=== PATIENT | female | born 1930 | race Caucasian/White ===

== ENCOUNTER → 2017-04-14 | Outpatient (CLI) | payer OTHER ==
--- NOTE | 2017-04-14 18:55 | RAD ---
HISTORY: Cough and shortness of breath Study: PA and lateral chest Comparison: None Findings: The trachea is midline. The cardiac silhouette is normal with intact pacemaker wire leads via the le ft subclavian vein.. The lungs are clear without focal infiltrate or effusion. The bony thorax is u nremarkable. IMPRESSION: 1. No acute cardiopulmonary disease. Reported By:
== END ==
LOC: RAD 17:08
PROVIDERS: ATTEND Internal Medicine
DX: R06.09 Other forms of dyspnea (principal)
CPT/HCPCS: 71020

== ENCOUNTER 2017-08-14 12:09 | Emergency (ER) | payer OTHER ==
[2017-08-14 12:31] VITALS: BMI 21.1
--- NOTE | 2017-08-14 13:13 | DR.GENAD ---
HPI - PCP Primary Care Physician: felix gaines - Complaint/Symptoms Chief Complaint Doctors Comments: Patient states she fell while going to the bathroom with head, neck and lower back pain. Patient states she is unsure if she passed out. States she is taking a new blood thinner and they told her it may make her dizzy. She dfenis chest pain or SOB. She denies nausea, vomiting , but has had a cold and cough. She denies dysuria, hematuria, or numbness in legs or back. Family states patient is taking antibiotics for strept infection in which she tested positive recently and is on Amoxicillin 500mg. Patient states her throat is not hurting. Chief Complaint:: pt fell going to the bathroom about an hour and a half ago she is having lower back pain and neck pain at this time - Nurses notes reviewed Nurses Notes Review: Yes - Source History Provided: Patient - Mode of Arrival Mode of Arrival: EMS - Timing Onset of Chief Complaint: 08/14/17 Came on: Suddenly - Duration Duration: Constant How lon Duration: Hours - Location Location: head, neck and lower back - Severity Severity: Moderate - Modifying Factors Worsens:: movement Improves:: nothing PMH - PMH Past Medical History: Yes Past Medical History: Anxiety, Arthritis, COPD, Hypertension Past Surgical History: Yes Surgical History: Ortho Surgery Past Surgical History Comment: pace maker, knee replacement - Family History History of Family Medical Conditions: Yes Family Medical History: Diabetes Mellitus, Cancer, Coronary Artery Disease, Heart Failure, Hypertension - Social History Does patient currently use any type of tobacco product: No Have you used tobacco products in the last 12 months: No Type of Tobacco Use: None Does any household member use tobacco: No Alcohol Use: None Do you use any recreational Drugs:: No Lives With: Alone Lives Where: Home - infectious screening In the last 2 months have you had wt loss of >10#?: NO Have you had fever, night sweats or hemotysis?: No Have you traveled outside the country in the last 6 months?: No Isolation: Standard ROS - Review of Systems Constitutional: No Symptoms Reported Eyes: No Symptoms Reported. negative: See HPI, Eye Pain, Blurred Vision, Tearing, Discharge, Photophobia, Diplopia, Other ENTM: No Symptoms Reported Respiratoy: No Symptoms Reported, Non-Productive Cough Cardiovascular: No Symptoms Reported Gastrointestinal/Abdominal: No Symptoms Reported Genitourinary: No Symptoms Reported Neurological: No Symptoms Reported, Headache Musculoskeletal: No Symptoms Reported, Back Pain, Neck Pain Integumentary: No Symptoms Reported. negative: See HPI, Change in Color, Change in Hair/Nails, Dryness, Lesions, Lumps, Rash, Itching, Wound, Bruises, Juandice, Other Hematologic/Lymphatic: No Symptoms Reported Endocrine: No Symptoms Reported Psychiatric: No Symptoms Reported PE - Vital Signs Vitals: Temperature 97.8 F Pulse Rate [Left Radial] 70 Pulse Rate 69 Respiratory Rate 17 Blood Pressure [Left Arm] 158/95 Blood Pressure 147/75 O2 Sat by Pulse Oximetry 97 - General Limitations: No Limitations General Appearance: Alert, In Distress (moderate) - Head Head Exam: Normal Inspection, Atraumatic, Normocephalic - Eyes Eye exam: Normal Appearance, PERRL, EOMI. negative: Scleral Icterus, Conjunctival Injection, Nystagmus, Miosis, Mydrasis, Periorbital Swelling, Periorbital Tenderness, Other - ENT ENT Exam: Normal Exam, Normal Oropharynx, Normal External Ear Exam, Mucous Membranes Moist, TM's Normal Bilaterally External Ear Exam: Normal External Inspection TM/Canal Exam: Bilateral Normal Nose Exam: Normal Nose Exam Mouth Exam: Normal Inspection Throat Exam: Normal Inspection - Neck Neck Exam: Normal Inspection, Full ROM, Trachea Midline - Chest Chest Inspection: Normal Inspection, Symmetric Chest Wall Rise - Respiratory Respiratory Exam: Normal Lung Sounds Bilat Respiratory Exam: Bilateral Clear to Auscultation - Cardiovascular Cardiovascular Exam: Regular Rate, Normal Rhythm, Normal Heart Sounds, Systolic Murmur - Abdominal Exam Abdominal Exam: Normal Inspection, Normal Bowel Sounds, Soft Abdominal Tenderness: negative: RUQ, RLQ, LUQ, LLQ, Epigastrium, Suprapubic, Diffuse, Mild, Moderate, Severe, Other - Extremities Extremities Exam: Normal Inspection, Full ROM, Tenderness (right knee tenderness ; states always tender; states she did not hurt her knee today.), Normal Capillary Refill. negative: Edema, Joint Swelling, Calf Tenderness, Other - Back Back Exam: Normal Inspection, Full ROM, Tenderness (lower back tendernes) - Neurologic Neurological Exam: Alert, Oriented X3, CN II-XII Intact, Reflexes Normal. negative: Normal Gait (gait not tested) - Psychiatric Psychiatric Exam: Normal Affect, Normal Mood - Skin Skin Exam: Warm, Dry, Intact, Normal Color ROR - Labs Reviewed Laboratory Results Reviewed?: Yes (all labs and x-ray results reviewed and discussed with patient.) Result Diagrams: 08/14/17 13:25 08/14/17 13: Laboratory: WBC 19.3 X10^3/uL (3.6-10.0) H 08/14/17 13: RBC 4.48 X10^6/uL (3.5-5.4) 08/14/17: Hgb 14.5 g/dL (12.0-16.0) 08/14/17: Hct 41.5 % (36.0-47.0) 08/14/17: MCV 92.6 fL (80.0-100.0) 08/14/17: MCH 32.3 pg (27.0-34.0) 08/14/17: MCHC 34.9 g/dL (33.0-35.0) 08/14/17: RDW 12.2 % (11.6-16.5) 08/14/17: Plt Count 276 X10^3/uL (150.0-450.0) 08/14/17: MPV 8.4 fL (7.4-11.0) 08/14/17: Neut % 81.7 % (42.0-75.0) H 08/14/17: Lymph % 9.7 % (21.0-51.0) L 08/14/17: [place] % 7.3 % (0.0-13.0) 08/14/17: Eos % 0.5 % (0.9-2.9) L 08/14/17: Baso % 0.8 % (0.2-1.0) 08/14/17: Neut # 15.8 x10^3/uL (2.2-4.8) H 08/14/17: Lymph # 1.9 X10^3/uL (1.3-2.9) 08/14/17: [place] # 1.4 x10^3/uL (0.3-0.8) H 08/14/17:25 Eos # 0.1 x10^3/uL (0.0-0.2) 08/14/17 13:25 Baso # 0.1 X10^3/uL (0.0-0.1) 08/14/17 13:25 Absolute Nucleated RBC 0.0 /100WBC 08/14/17 13:25 INR Target Range - 08/14/17 13:25 INR 1.13 (0.8-1.3) 08/14/17 13:25 PTT 32.6 SECONDS (22.9-36.5) 08/14/17 13:25 PTT Comment - 08/14/17 13:25 Sodium 134 mmol/L (136-145) L 08/14/17 13:25 Corrected Sodium TNP 08/14/17 13:25 Potassium 3.6 mmol/L (3.5-5.1) 08/14/17 13:25 Chloride 96 mmol/L (98-107) L 08/14/17 13:25 Carbon Dioxide 28.0 mmol/L (21-32) 08/14/17 13:25 BUN 16 mg/dL (7-18) 08/14/17 13:25 Creatinine 1.17 mg/dL (0.55-1.02) H 08/14/17 13:25 Est GFR (MDRD) Af Amer 57 (>60) L 08/14/17 13:25 Est GFR (MDRD) Non-Af 47 (>60) L 08/14/17 13:25 Glucose 103 mg/dL (65-99) H 08/14/17 13:25 Calcium 10.3 mg/dL (8.5-10.1) H 08/14/17 13:25 Corrected Calcium TNP 08/14/17 13:25 Magnesium 1.8 mg/dL (1.7-2.9) 08/14/17 13:25 Total Bilirubin 0.60 mg/dL (0.2-1.0) 08/14/17 13:25 AST 34 Units/L (15-37) 08/14/17 13:25 ALT 22 Units/L (12-78) 08/14/17 13:25 Alkaline Phosphatase 73 Units/L (46-116) 08/14/17 13:25 Creatine Kinase 62 Units/L (26-192) 08/14/17 13:25 CK-MB (CK-2) < 1.0 ng/mL (0-4.0) 08/14/17 13:25 CK/CKMB % Calc 1.6 % (<4) 08/14/17 13:25 Troponin I < 0.02 ng/mL (0-1.5) 08/14/17 13:25 Total Protein 8.1 g/dL (6.4-8.2) 08/14/17 13:25 Albumin 4.0 g/dL (3.4-5.0) 08/14/17 13:25 Globulin 4.1 g/dL (2.5-4.5) 08/14/17 13:25 Albumin/Globulin Ratio 1.0 Ratio (1.1-2.1) L 08/14/17 13:25 - Other Results Comments: CT head: No evidence of acute intracranial abnormality. Nonspecific white matter change and volume loss - XRAY XRAY Interpreted by: Radiologist (CT lumbar spine: Chronic compression L1. No definite acute osseous injury to the lumbar spine) XRAY Findings: CT cervical spine: No evidence of acute cervical spine fracture or subluxat - EKG Rate: 69 [place]: Normal Rhythm: NSR ST: Nonsp - Diagnosis Discharge Problem: Fall, chronic compression fracture L1, Degenerative disc disease, cervical, Degenerative disc disease, lumbar, Leukocytosis, History of streptococcal pharyngitis - Discharge Plan Disposition: HOME, SELF-CARE Condition: Stable Prescriptions: Hydrocodone-Acet 5 mg/325 mg [Girard 5/325 mg Tab] 1 tab PO Q8H PRN #9 tab PRN Reason: Levofloxacin [LEVAQUIN TAB 250 MG *] 250 mg PO Q24H #7 tab - Follow ups/Referrals Follow ups/Referrals: [facility],None [Primary Care Provider] - 3 days SPIKE EATON [STAFF PHYSICIAN] - 3 days PERICO CRAMER [STAFF PHYSICIAN] - 3 days - Instructions Instructions: Leukocytosis, Degenerative Disk Disease, Fall Prevention in the Home, Spinal Compression Fracture
--- NOTE | 2017-08-14 13:50 | CT ---
STUDY: CT HEAD WITHOUT CONTRAST HISTORY: Patient fell going to the bathroom about 1.5 hours ago. Lower back pain and neck pain. COMPARISON: None. TECHNIQUE: Multiple axial images of the head were obtained from the skull base to the vertex without administration of IV contrast. Automated exposure control (AEC) was utilized to adjust the MA and/or kV. Findings: The sulci, cisterns and ventricles are prominent consistent with diffuse volume loss There are confluent and scattered foci of low attenuation in the periventricular and subcortical whit e matter of both hemispheres. This is a nonspecific finding which likely represents microangiopathic change in a patient of this age. There is no evidence of acute territorial infarction, hemorrhage, mass, mass effect or midline shift. There are no abnormal extra-axial fluid collections. There is no evidence of acute osseous abnormality or significant soft tissue swelling. Note is made o f partial opacification of the right sphenoid chamber. IMPRESSION: 1. No evidence of acute intracranial abnormality. 2. Nonspecific white matter change and volume loss as described. 3. If there remains strong clinical concern for acute intracranial abnormality, then an MRI examinati on should be considered for further evaluation. Reported By:
[2017-08-14 13:54] LABS: BASOPHILS # (AUTO) 0.1 X10^3/uL (0.0-0.1); BASOPHILS % (AUTO) 0.8 % (0.2-1.0); EOSINOPHILS # (AUTO) 0.1 x10^3/uL (0.0-0.2); EOSINOPHILS % (AUTO) 0.5 % (0.9-2.9); HEMATOCRIT 41.5 % (36.0-47.0); HEMOGLOBIN 14.5 g/dL (12.0-16.0); LYMPHOCYTES # (AUTO) 1.9 X10^3/uL (1.3-2.9); LYMPHOCYTES % (AUTO) 9.7 % (21.0-51.0); MEAN CORPUSCULAR HEMOGLOBIN 32.3 pg (27.0-34.0); MEAN CORPUSCULAR HGB CONC 34.9 g/dL (33.0-35.0); MEAN CORPUSCULAR VOLUME 92.6 fL (80.0-100.0); MEAN PLATELET VOLUME 8.4 fL (7.4-11.0); MONOCYTES # (AUTO) 1.4 x10^3/uL (0.3-0.8); MONOCYTES % (AUTO) 7.3 % (0.0-13.0); NEUTROPHILS # (AUTO) 15.8 x10^3/uL (2.2-4.8); NEUTROPHILS % (AUTO) 81.7 % (42.0-75.0); PLATELET COUNT 276 X10^3/uL (150.0-450.0); RED BLOOD COUNT 4.48 X10^6/uL (3.5-5.4); RED CELL DISTRIBUTION WIDTH 12.2 % (11.6-16.5); WHITE BLOOD COUNT 19.3 X10^3/uL (3.6-10.0)
--- NOTE | 2017-08-14 14:04 | CT ---
STUDY: CT LUMBAR SPINE WITHOUT CONTRAST HISTORY: Fall. Lower back pain and neck pain. Comparison: None. Technique: Multiple axial images of the lumbar spine were obtained from the thoracolumbar junction t o the sacrum without the administration of IV contrast. Sagittal and coronal reformats were performe d and reviewed. Findings: There is a compression deformity involving the L1 vertebral body, with approximately 20% loss of vert ebral body height. This appears chronic. There is no evidence of acute fracture or subluxation. Th ere is multilevel degenerative disc disease and degenerative endplate change. There is vacuum disc ph enomenon and severe loss of disc height at L4/5. There is multilevel facet arthropathy. There is no significant central canal stenosis bony osteophyte or soft tissue components. There is no significant neural foraminal stenosis. The surrounding parasp inous soft tissues are normal in appearance. IMPRESSION: 1. Chronic appearing compression deformity involving L1. No definite evidence of acute osseous injur y to the lumbar spine. 2. Would consider MRI examination of the lumbar spine for further evaluation, and to assess for hesham ow edema as clinically warranted. Reported By:
--- NOTE | 2017-08-14 14:11 | CT ---
STUDY: CT OF THE CERVICAL SPINE HISTORY: Fall. Neck pain. Technique: Multiple axial images of the cervical spine were obtained from the skull base to the thora cic inlet without administration of IV contrast. Sagittal and coronal reformats were performed and r eviewed. Automated exposure control (AEC) was utilized to adjust the MA and/or kV. Comparison: None. Findings: There is multilevel degenerative disc disease and degenerative endplate change. Loss of disc height i s most severe at C5/6. Vertebral body heights and alignment are otherwise within normal limits. There is no evidence of acute fracture or subluxation. Facet alignment is within normal limits bilaterally . The spinous processes are intact. There is no significant prevertebral soft tissue swelling. The la teral masses of C1, and the C1/C2 relationship are normal. The odontoid process is intact. The occipi ruben condyles and their relationship with C1 are normal. IMPRESSION: 1. No evidence of acute cervical spine fracture or subluxation. 2. Multilevel cervical spondylosis. Reported By:
[2017-08-14 14:14] LABS: BLOOD UREA NITROGEN 16 mg/dL (7-18); CALCIUM 10.3 mg/dL (8.5-10.1); CHLORIDE 96 mmol/L (98-107); CREATININE 1.17 mg/dL (0.55-1.02); SODIUM 134 mmol/L (136-145); TROPONIN I < 0.02 ng/mL (0-1.5); eGFR BLACK RACES 57 (>60); eGFR NON BLACK RACES 47 (>60)
[2017-08-14 14:18] LABS: ALANINE AMINOTRANSFERASE 22 Units/L (12-78); ALKALINE PHOSPHATASE 73 Units/L (46-116); ASPARTATE AMINO TRANSFERASE 34 Units/L (15-37); CKMB % 1.6 % (<4); CREATINE KINASE 62 Units/L (26-192); CREATINE KINASE MB < 1.0 ng/mL (0-4.0); MAGNESIUM 1.8 mg/dL (1.7-2.9); TOTAL PROTEIN 8.1 g/dL (6.4-8.2)
--- NOTE | 2017-08-14 14:51 | RAD ---
Examination: Portable AP chest History: Fell, low back pain Comparison reference 04/14/2017 Continued normal heart size, tortuous aorta, stable position of pacing device and clear lungs and ple ural spaces. Suspect degenerative calcification of mitral annulus. Impression: No acute findings. Reported By:
[2017-08-14 15:32] VITALS: BP 158/95
[2017-08-14] MEDS ORDERED: LEVAQUIN TAB 500 MG PO STA (15:42)
[2017-08-14] MEDS ORDERED: NORCO 7.5/325 MG TAB PO ONE (15:43)
[2017-08-14] MEDS ORDERED: NORCO 7.5/325 MG TAB ONE (15:57)
[2017-08-14] MEDS ORDERED: LEVAQUIN TAB 500 MG ONE (15:57)
[2017-08-14 16:12] LABS: BILIRUBIN,URINE NEGATIVE (NEGATIVE); BLOOD/HEMOGLOBIN,URINE NEGATIVE (NEGATIVE); GLUCOSE, URINE NEGATIVE (NEGATIVE); KETONES,URINE 1+ (NEGATIVE); LEUKOCYTE ESTERASE ,URINE 1+ (NEGATIVE); NITRITES,URINE NEGATIVE (NEGATIVE); PROTEIN,URINE 2+ (NEGATIVE); UROBILINOGEN,URINE NORMAL (NORMAL)
[2017-08-14 16:24] LABS: APPEARANCE,URINE HAZY (CLEAR); COLOR,URINE YELLOW (YELLOW); RBC,URINE 0-2 /HPF (NEGATIVE)
[2017-08-14 16:25] LABS: BACTERIA,URINE TRACE /HPF (NEGATIVE); SQUAMOUS EPITHELIAL CELL,UR FEW /HPF (NEGATIVE)
== END 2017-08-14 16:13 | disposition home or self-care (01) ==
LOC: ER 12:22
DX: S32.009A Unspecified fracture of unspecified lumbar vertebra, initial encounter for closed fracture (principal); M50.30 Other cervical disc degeneration, unspecified cervical region; M51.36 Other intervertebral disc degeneration, lumbar region; D72.829 Elevated white blood cell count, unspecified; W19.XXXA Unspecified fall, initial encounter; Y92.89 Other specified places as the place of occurrence of the external cause
CPT/HCPCS: 36415; 70450; 71045; 72125; 72131; 80053; 81001; 82550; 82553; 83735; 84484; 85025; 85610; 85730; 93005; 93010; 99283

== ENCOUNTER → 2017-08-27 | Outpatient (CLI) | payer OTHER ==
[2017-08-14 15:32] VITALS: BP 158/95
--- NOTE | 2017-08-27 09:48 | CT ---
HISTORY: Right-sided weakness, falls, anticoagulated Study: CT head without contrast Comparison: 08/14/2017 Technique: Axial noncontrast images with coronal and sagittal reformats. Dose reduction procedures we re used with mA/kv adjusted for body size. Findings: The ventricles are normal in size shape and position. There is slight decreased attenuation in the pe riventricular white matter suggestive of small vessel vascular disease. Moderately severe age-related cortical atrophy is present. There is no evidence for visible recent or remote CVA, hemorrhage, mass lesion, or extra-axial fluid collection. The visualized sinuses are clear. The calvarium is intact. If acute CVA is a strong clinical consideration MRI with diffusion imaging would be of further diagno stic value. IMPRESSION: No acute intracranial abnormality Age-related atrophy Small vessel disease Reported By:
== END ==
LOC: RAD 08:59
PROVIDERS: ATTEND Internal Medicine
DX: Z79.01 Long term (current) use of anticoagulants (principal); W19.XXXD Unspecified fall, subsequent encounter
CPT/HCPCS: 70450

== ENCOUNTER → 2017-09-08 | Outpatient (CLI) | payer OTHER ==
[2017-08-14 15:32] VITALS: BP 158/95
--- NOTE | 2017-09-08 14:18 | RAD ---
HISTORY: Lumbar compression fracture Study: AP and lateral lumbar spine Comparison: CT scan from 08/14/2017 Findings: Moderate to moderately severe osteopenia is noted. Mild facet arthropathy is noted at L4/L5 and L5/S 1 with milder degrees elsewhere. There is a ring-like calcification in the left upper abdominal quad rant measuring 2.5 cm in diameter, most likely a splenic artery aneurysm. Examination of the lateral images demonstrates moderately severe disc space narrowing at L4/L5. Mode rate anterior compression of L3 is noted, progressed when compared to the prior examination. There i s moderate central compression as well. Mild anterior compression of L1 is noted, unchanged and poss ibly a remote fracture. I cannot exclude an acute component due to the angulation of the anterior carpio perior cortex of L1.. There does appear to be slight retropulsion of posterior superior cortex. Mil d anterior spurring is present multiple levels. IMPRESSION: 1. Degenerative change and osteopenia in the lumbar spine as described above. 2. Progression of compression of L3 anteriorly and centrally. The posterior vertebral body appears to be intact. This is felt to be due to acute to subacute fracture. 3. Anterior compression of L1, appearing to possibly be subacute to remote with slight retropulsion. 4. Findings of a large splenic artery aneurysm. Reported By:
== END | disposition home or self-care (01) | DRG 552 ==
LOC: RAD 11:57
PROVIDERS: ATTEND Specialist
DX: S32.000S Wedge compression fracture of unspecified lumbar vertebra, sequela (principal); X58.XXXS Exposure to other specified factors, sequela; M85.88 Other specified disorders of bone density and structure, other site
CPT/HCPCS: 72100

== ENCOUNTER → 2017-10-07 | Outpatient (CLI) | payer OTHER ==
--- NOTE | 2017-10-07 15:15 | RAD ---
HISTORY: Right-sided rib pain after fall. Study: PA chest with right rib details. Comparison: Chest radiograph from 08/14/2017 Findings: There are findings of minimal interstitial scarring. Mild biapical pleural/parenchymal thickening is noted, unchanged. Electronic cardiac device is present on the left with its leads appearing to be i n appropriate position. Minimal subsegmental atelectasis is noted adjacent to the heart border. No evidence of pneumothorax is noted. I see no definite evidence of a displaced or nondisplaced rib fracture with the exception of possible nondisplaced fracture involving the right 10th rib anne lat erally. Clinical correlation is recommended. IMPRESSION: 1. Findings of mild interstitial fibrosis. 2. Possible nondisplaced right rib fracture involving the 10th rib anne laterally. Clinical corre lation is recommended. 3. No evidence of pneumothorax is noted. Reported By:
== END ==
LOC: RAD 14:37
PROVIDERS: ATTEND Internal Medicine
DX: R07.81 Pleurodynia (principal)
CPT/HCPCS: 71111

== ENCOUNTER → 2017-10-20 | Outpatient (CLI) | payer OTHER ==
[~2017-10-20] MED LIST: NS 100 ML IV 100 ML IV ONE
[2017-10-20 08:50] LABS: CREATININE 1.11 mg/dL (0.55-1.02)
--- NOTE | 2017-10-20 13:27 | CT ---
CTA ABDOMEN AND PELVIS WITH AND WITHOUT CONTRAST CLINICAL INDICATION: Aneurysm PROCEDURE: Noncontrast CTA images were initially obtained through the abdomen and pelvis. Following administration of non-ionic IV contrast, postcontrast CTA images were obtained through the abdomen a nd pelvis. 3D reconstructions were performed. Dose reduction techniques including Automated Exposure Control (AEC) and adjustment of mA and kV were utlized. COMPARISON: Lumbar spine CT 08/14/2017 FINDINGS: Vascular: 2.8 cm splenic artery aneurysm on series 17, image 49 with mouth measuring approximately 5 mm. This is essentially stable from 08/14/2017. Atherosclerotic calcification of the aorta and major branches.No dissection. CTA Abdomen without contrast: No gallstones, renal stones or proximal ureteral stones. CTA Pelvis without contrast: No distal ureteral stones or bladder stones. CTA Abdomen with intravenous contrast: Liver and spleen are normal in size, enhancement characteristi cs and contour. No focal lesions. The portal vein is patent. No ductal dilitation. Gallbladder is pre sent. No gallbladder wall thickening. The pancreas is unremarkable. Adrenal glands are normal. Kidney s enhance symmetrically without hydronephrosis. Indeterminate right renal lesion measuring 1.1 cm on series 4, image 40 with questionable enhancement No bowel obstruction or inflammation. No abnormal appearing mesenteric or retroperitoneal lymph node s. No free fluid or fluid collections. CTA Pelvis with contrast: The bladder is normal in appearance. Uterus not well characterized. No free fluid or abnormal pelvic lymph nodes. acute/subacute common near complete compression fracture of L 3 with mild retropulsion of fragments. Stable subacute fracture of L1. IMPRESSION: 1. Splenic artery aneurysm as above which has not changed since 08/14/2017. 2. New, acute/subacute near complete compression fracture of L3. Correlate with symptoms. 3. Indeterminate right renal lesion. This could further be evaluated with ultrasound or MRI. Reported By:
== END ==
LOC: RAD 08:22
PROVIDERS: ATTEND Surgery Vascular Surgery
DX: I72.8 Aneurysm of other specified arteries (principal); N18.9 Chronic kidney disease, unspecified
CPT/HCPCS: 36415; 74174; 82565; 84520; A4222